=== PATIENT | female | born 1955 | race Caucasian/White ===

== ENCOUNTER 2021-08-28 11:59 | Outpatient (CLI) | payer MEDICARE, OTHER | END 2021-08-28 12:00 | disposition home or self-care (01) | LOC: BICMAMMO 11:59 | PROVIDERS: ATTEND Family Medicine | DX: Z12.31 Encounter for screening mammogram for malignant neoplasm of breast (principal) | CPT/HCPCS: 77063; 77067 ==

== ENCOUNTER 2021-10-29 08:51 | Outpatient (CLI) | payer MEDICARE, OTHER ==
[2021-10-29] MEDS ORDERED: Iopamidol-370 76% 500 ML 1 ML ONE (09:39)
== END 2021-10-29 08:52 | disposition home or self-care (01) ==
LOC: CT 08:51
PROVIDERS: ATTEND Internal Medicine Cardiovascular Disease
DX: I65.23 Occlusion and stenosis of bilateral carotid arteries (principal)
CPT/HCPCS: 70498; 82565

== ENCOUNTER 2023-04-04 17:26 | Inpatient (IN) | payer MEDICARE, OTHER ==
[2023-04-04 18:13] LABS: #Basophils 0.1 thou/uL (0.0-0.2); #Eosinphils 0.2 thou/uL (0.0-0.7); #Monocytes 0.9 thou/uL (0.11-0.59); #Neutrophils 4.7 thou/uL (1.40-6.50); %Basophils 0.8 % (0.0-1.0); %Monocytes 11.3 % (0.0-10.0); %Neutrophils 59.6 % (42.0-75.0); Hematocrit 37.4 % (36.0-47.0); Hemoglobin 12.7 g/dL (12.0-16.0); Mean Corpuscular Hemoglobin 32.2 pg (27.0-31.0); Mean Corpuscular Volume 94.7 fl (78.0-98.0); Mean Platelet Volume 9.4 fL (7.4-10.4); Platelet Count 316 10x3/uL (130-400); RBC Distribution Width 12.4 % (11.5-14.5); Red Blood Cell (RBC) Count 3.95 mill/uL (4.20-5.40); White Blood Cell (WBC) Count 7.9 10x3/uL (4.8-10.8)
[2023-04-04] MEDS ORDERED: Aspirin Chewable 81 MG TAB ONE (18:13)
[2023-04-04 18:39] LABS: ALT (SGPT) 20 U/L (8-55); AST (SGOT) 24 U/L (5-34); Albumin 4.7 g/dL (3.4-4.8); Alkaline Phosphatase 76 U/L (40-110); Anion Gap 22 mmol/L (10-20); BUN (Urea Nitrogen) 13 mg/dL (9.8-20.1); Bilirubin, Total 0.2 mg/dL (0.2-1.2); Calc. Creatinine Clearance 0 mL/min (70-130); Calcium 9.7 mg/dL (7.8-10.44); Carbon Dioxide 22 mmol/L (23-31); Chloride 95 mmol/L (98-107); Estimated GFR 77; Globulin 2.7 g/dL (2.4-3.5); Glucose 98 mg/dL (80-115); Lipase 28 U/L (8-78); Potassium 3.8 mmol/L (3.5-5.1); Protein, Total 7.4 g/dL (5.8-8.1); Sodium 135 mmol/L (136-145)
[2023-04-04] MEDS ORDERED: Nitroglycerin 0.4 MG TAB (25 Tab Bottle) SL PRN (21:32)
[2023-04-04] MEDS ORDERED: Ondansetron PF 4 MG/2 ML Vial IVP PRN (21:32)
[2023-04-04] MEDS ORDERED: Ondansetron ODT 4 MG TAB PO PRN (21:32)
[2023-04-04] MEDS ORDERED: Calcium Carbonate 500 MG ChewTAB PO PRN (21:32)
[2023-04-04] MEDS ORDERED: Acetaminophen 325 MG TAB PO PRN (21:32)
[2023-04-04 22:53] LABS: Troponin I 0.143 ng/mL (< 0.028)
[2023-04-05 00:16] VITALS: BMI 20.9
[2023-04-05 05:02] LABS: #Basophils 0.1 thou/uL (0.0-0.2); #Eosinphils 0.1 thou/uL (0.0-0.7); #Monocytes 0.8 thou/uL (0.11-0.59); #Neutrophils 3.7 thou/uL (1.40-6.50); %Eosinophils 1.6 % (0.0-10.0); %Lymphocytes 26.8 % (21.0-51.0); %Monocytes 12.4 % (0.0-10.0); %Neutrophils 57.9 % (42.0-75.0); Hematocrit 35.5 % (36.0-47.0); Hemoglobin 11.8 g/dL (12.0-16.0); Mean Corpuscular HGB CONC 33.2 g/dL (32.0-36.0); Mean Corpuscular Hemoglobin 32.2 pg (27.0-31.0); Mean Corpuscular Volume 96.7 fl (78.0-98.0); Mean Platelet Volume 9.9 fL (7.4-10.4); Platelet Count 313 10x3/uL (130-400); RBC Distribution Width 12.5 % (11.5-14.5); Red Blood Cell (RBC) Count 3.67 mill/uL (4.20-5.40); White Blood Cell (WBC) Count 6.3 10x3/uL (4.8-10.8)
[2023-04-05 05:25] LABS: Anion Gap 13 mmol/L (10-20); BUN (Urea Nitrogen) 10 mg/dL (9.8-20.1); Calc. Creatinine Clearance 74 mL/min (70-130); Calcium 9.4 mg/dL (7.8-10.44); Carbon Dioxide 26 mmol/L (23-31); Cardiac Risk 4.6 (Less than 4.5); Chloride 103 mmol/L (98-107); Cholesterol 288 mg/dl (< 200 Desired); Estimated GFR 92; Glucose 98 mg/dL (80-115); HDL Cholesterol 62 mg/dL (>60 Neg Risk); LDL Cholesterol, Calculated 200 mg/dL; Potassium 3.8 mmol/L (3.5-5.1); Sodium 138 mmol/L (136-145); Triglycerides 132 mg/dL (Less than 150)
[2023-04-05 06:36] LABS: Troponin I 0.609 ng/mL (< 0.028)
[2023-04-05 07:51] LABS: Troponin I 0.824 ng/mL (< 0.028)
[2023-04-05] MEDS ORDERED: Electrolyte Replacement Protocol 1 EACH FS SCH (11:15)
[2023-04-05] MEDS ORDERED: Communication Order-Pharmacy FS PRN (11:15)
[2023-04-05] MEDS: NIFEdipine XL 30 MG TAB PO SCH (11:20)
[2023-04-05] MEDS: Aspirin Chewable 81 MG TAB PO SCH (11:21)
[2023-04-05] MEDS ORDERED: Ezetimibe 10 MG TAB PO SCH (11:45)
[2023-04-05] MEDS ORDERED: Electrolyte Replacement Protocol FS PRN (11:45)
[2023-04-05] MEDS: Rosuvastatin 20 MG TAB PO SCH (17:17)
[2023-04-06 04:36] LABS: #Basophils 0.1 thou/uL (0.0-0.2); #Eosinphils 0.2 thou/uL (0.0-0.7); #Monocytes 0.8 thou/uL (0.11-0.59); #Neutrophils 3.2 thou/uL (1.40-6.50); %Basophils 1.2 % (0.0-1.0); %Eosinophils 2.6 % (0.0-10.0); %Lymphocytes 28.9 % (21.0-51.0); %Monocytes 13.6 % (0.0-10.0); %Neutrophils 53.4 % (42.0-75.0); Hematocrit 36.6 % (36.0-47.0); Hemoglobin 12.2 g/dL (12.0-16.0); Mean Corpuscular HGB CONC 33.3 g/dL (32.0-36.0); Mean Corpuscular Hemoglobin 32.5 pg (27.0-31.0); Mean Corpuscular Volume 97.6 fl (78.0-98.0); Mean Platelet Volume 9.8 fL (7.4-10.4); Platelet Count 295 10x3/uL (130-400); RBC Distribution Width 12.6 % (11.5-14.5); Red Blood Cell (RBC) Count 3.75 mill/uL (4.20-5.40); White Blood Cell (WBC) Count 6.1 10x3/uL (4.8-10.8)
[2023-04-06 04:54] LABS: Anion Gap 8 mmol/L (10-20); BUN (Urea Nitrogen) 10 mg/dL (9.8-20.1); Calc. Creatinine Clearance 65 mL/min (70-130); Calcium 9.2 mg/dL (7.8-10.44); Carbon Dioxide 26 mmol/L (23-31); Chloride 106 mmol/L (98-107); Estimated GFR 79; Glucose 99 mg/dL (80-115); Potassium 4.1 mmol/L (3.5-5.1); Sodium 136 mmol/L (136-145)
[2023-04-06] MEDS ORDERED: Sodium Chloride 0.9% 1,000 ML IV SCH (06:00)
[2023-04-06] MEDS ORDERED: Heparin 10,000 UNITS/ 10 ML VIAL ONE (06:29)
[2023-04-06] MEDS ORDERED: Lidocaine 1% (PF) 30 ML VIAL ONE (06:29)
[2023-04-06] MEDS ORDERED: Midazolam HCl 2 mg/2 ml Vial ONE (06:30)
[2023-04-06] MEDS ORDERED: fentaNYL 50 mcg/mL 1 mL Vial ONE (06:30)
[2023-04-06] MEDS ORDERED: Nitroglycerin 2% Ointment 1 INCH/1 GM Packet ONE (07:57)
[2023-04-06] MEDS ORDERED: Sodium Chloride 0.9% 200 ML IV PRN (08:13)
[2023-04-06] MEDS ORDERED: Nitroglycerin 0.4 MG TAB (25 Tab Bottle) SL PRN (08:13)
[2023-04-06] MEDS ORDERED: Iopamidol 370 76% 100 ML VIAL ONE (08:40)
[2023-04-06] MEDS ORDERED: Ezetimibe 10 MG TAB PO SCH (09:00)
[2023-04-06] MEDS: NIFEdipine XL 30 MG TAB PO SCH (10:25)
[2023-04-06] MEDS: Aspirin Chewable 81 MG TAB PO SCH (10:27)
[2023-04-06] MEDS ORDERED: Communication Order-Pharmacy FS SCH (15:06)
[2023-04-06] MEDS: Rosuvastatin 20 MG TAB PO SCH (17:52)
[2023-04-06] MEDS: Metoprolol Tartrate 25 MG TAB PO SCH (21:27)
[2023-04-07 04:52] LABS: %Eosinophils 1.7 % (0.0-10.0); %Lymphocytes 22.9 % (21.0-51.0); %Monocytes 12.5 % (0.0-10.0); %Neutrophils 61.6 % (42.0-75.0); Hematocrit 36.3 % (36.0-47.0); Hemoglobin 11.9 g/dL (12.0-16.0); Mean Corpuscular HGB CONC 32.8 g/dL (32.0-36.0); Mean Corpuscular Hemoglobin 32.4 pg (27.0-31.0); Mean Corpuscular Volume 98.9 fl (78.0-98.0); Mean Platelet Volume 9.7 fL (7.4-10.4); Platelet Count 283 10x3/uL (130-400); RBC Distribution Width 12.5 % (11.5-14.5); Red Blood Cell (RBC) Count 3.67 mill/uL (4.20-5.40); White Blood Cell (WBC) Count 7.2 10x3/uL (4.8-10.8)
[2023-04-07 04:53] LABS: #Basophils 0.1 thou/uL (0.0-0.2); #Eosinphils 0.1 thou/uL (0.0-0.7); #Monocytes 0.9 thou/uL (0.11-0.59); #Neutrophils 4.4 thou/uL (1.40-6.50)
[2023-04-07 05:31] LABS: Anion Gap 14 mmol/L (10-20); BUN (Urea Nitrogen) 7 mg/dL (9.8-20.1); Calc. Creatinine Clearance 75 mL/min (70-130); Calcium 9.1 mg/dL (7.8-10.44); Carbon Dioxide 24 mmol/L (23-31); Chloride 106 mmol/L (98-107); Estimated GFR 94; Glucose 104 mg/dL (80-115); Potassium 3.7 mmol/L (3.5-5.1); Sodium 140 mmol/L (136-145)
[2023-04-07] MEDS: Metoprolol Tartrate 25 MG TAB PO SCH (05:40)
[2023-04-07] MEDS ORDERED: Albumin 5% 500 ML ONE (06:20)
[2023-04-07] MEDS ORDERED: Heparin 10,000 UNITS/1 ML VIAL 30,000 UNITS in Sodium Chloride 0.9% 1,000 ML FS SCH (06:30)
[2023-04-07] MEDS ORDERED: Midazolam HCl 2 mg/2 ml Vial ONE (06:44)
[2023-04-07] MEDS ORDERED: Fentanyl 250 MCG/5 ML VIAL ONE (06:44)
[2023-04-07] MEDS ORDERED: Dexmedetomidine 200 MCG/2 ML VIAL ONE (06:44)
[2023-04-07] MEDS ORDERED: Ondansetron ODT 4 MG TAB ONE (07:03)
[2023-04-07] MEDS ORDERED: Sodium Chloride 0.9% 100 ML ONE (07:22)
[2023-04-07] MEDS ORDERED: CEFAZOLIN 2 GM VIAL ONE (07:22)
[2023-04-07] MEDS ORDERED: Magnesium 5 GM/10 ML VIAL ONE (07:34)
[2023-04-07] MEDS ORDERED: Aminocaproic Acid 5 GM/20 ML VIAL ONE (07:34)
[2023-04-07] MEDS ORDERED: Thrombin 5000 UNITS/5 ML VIAL ONE (07:34)
[2023-04-07] MEDS ORDERED: Cardioplegic Soln 1,000 ML BAG ONE (07:34)
[2023-04-07] MEDS ORDERED: Sodium Bicarb 50 MEQ/50 ML VIAL ONE (07:34)
[2023-04-07] MEDS ORDERED: Lidocaine 2% PF 100 mg/5 ml Syringe ONE (07:34)
[2023-04-07] MEDS ORDERED: Protamine Sulfate 250 MG/25 ML VIAL ONE (07:34)
[2023-04-07] MEDS ORDERED: Calcium Chloride 1 GM/10 ML Abboject SYRINGE ONE (07:34)
[2023-04-07] MEDS ORDERED: Norepinephrine 4 MG/4 ML VIAL ONE (07:34)
[2023-04-07] MEDS ORDERED: Dexamethasone 20 MG/5 ML VIAL ONE (07:34)
[2023-04-07] MEDS ORDERED: Papaverine 60 MG/2 ML VIAL ONE (07:34)
[2023-04-07] MEDS ORDERED: Mannitol 12.5 GM/50 ML ONE (07:34)
[2023-04-07] MEDS ORDERED: NEOSTIGMINE 3 MG/3 ML SYR 3 MG/3 ML SYRINGE ONE (07:34)
[2023-04-07] MEDS ORDERED: Lidocaine 1% PF 5 ML VIAL ONE (07:34)
[2023-04-07] MEDS ORDERED: Heparin 30,000 units/30 ml VIAL ONE (07:34)
[2023-04-07] MEDS ORDERED: Vancomycin 1 GM VIAL ONE (07:34)
[2023-04-07] MEDS ORDERED: Glycopyrrolate 0.2 MG/ML 5 ML SYRINGE ONE (07:34)
[2023-04-07] MEDS ORDERED: Potassium Chloride 60 MEQ/30 ML VIAL ONE (07:34)
[2023-04-07] MEDS ORDERED: Vecuronium 10 MG VIAL ONE (07:34)
[2023-04-07] MEDS ORDERED: Heparin 5,000 UNITS/ML VIAL ONE (07:34)
[2023-04-07] MEDS ORDERED: Ondansetron PF 4 MG/2 ML Vial ONE (07:34)
[2023-04-07] MEDS ORDERED: PROPOFOL 200 MG/20 ML VIAL ONE (07:34)
[2023-04-07] MEDS ORDERED: Mag-Al 1200 mg/1200 mg/30 ML UDCUP PO PRN (10:10)
[2023-04-07] MEDS ORDERED: Potassium Chloride 20 MEQ/100 ML PREMIX BAG IVPB PRN (10:10)
[2023-04-07] MEDS ORDERED: NOREPINEPHRINE 8 MG/250 ML-D5W 250 ML IVPB PRN (10:10)
[2023-04-07] MEDS ORDERED: Ipratropium/Albuterol 3 ML NEB NEB PRN (10:10)
[2023-04-07] MEDS ORDERED: Hetastarch 6% 500 ML 500 ML IVPB PRN (10:10)
[2023-04-07] MEDS ORDERED: DOPamine 400 MG/D5W 250 ML 250 ML IVPB PRN (10:10)
[2023-04-07] MEDS ORDERED: Ondansetron PF 4 MG/2 ML Vial IVP PRN (10:10)
[2023-04-07] MEDS ORDERED: Morphine 2 MG/ML VIAL SLOW IVP PRN (10:10)
[2023-04-07] MEDS ORDERED: niCARdipine 25 MG in Sodium Chloride 0.9% 250 ML 250 ML IVPB PRN (10:10)
[2023-04-07] MEDS ORDERED: Guaifenesin DM 100-10/5 ML UDCUP PO PRN (10:10)
[2023-04-07] MEDS ORDERED: Bisacodyl 5 MG TAB PO PRN (10:10)
[2023-04-07] MEDS ORDERED: Bisacodyl 10 MG SUPP PR PRN (10:10)
[2023-04-07] MEDS ORDERED: Post-Op Insulin Drip Protocol IVPB ONE (10:10)
[2023-04-07] MEDS ORDERED: Nitroglycerin 50 MG/250 ML BOT 250 ML IVPB PRN (10:10)
[2023-04-07] MEDS ORDERED: Acetaminophen 325 MG TAB PO PRN (10:10)
[2023-04-07] MEDS ORDERED: Glucagon 1 MG/ML KIT SC PRN (10:30)
[2023-04-07] MEDS ORDERED: HUMULIN R 100 UNITS in Sodium Chloride 0.9% 100 ML IVPB SCH (10:30)
[2023-04-07] MEDS ORDERED: Dextrose 50% Abboject 50 ML SYRINGE SLOW IVP PRN (10:30)
[2023-04-07] MEDS ORDERED: Dextrose 5% in Water 1,000 ML IV PRN (10:30)
[2023-04-07] MEDS: Insulin Regular 300 UNITS/3 ML VIAL SC PRN ×2 (10:36→20:27)
[2023-04-07 10:38] LABS: #Basophils 0.1 thou/uL (0.0-0.2); #Eosinphils 0.1 thou/uL (0.0-0.7); #Monocytes 0.6 thou/uL (0.11-0.59); %Basophils 0.4 % (0.0-1.0); %Eosinophils 0.7 % (0.0-10.0); %Lymphocytes 8.4 % (21.0-51.0); %Monocytes 4.1 % (0.0-10.0); %Neutrophils 85.5 % (42.0-75.0); Hematocrit 33.5 % (36.0-47.0); Hemoglobin 10.8 g/dL (12.0-16.0); Mean Corpuscular HGB CONC 32.2 g/dL (32.0-36.0); Mean Corpuscular Hemoglobin 32.2 pg (27.0-31.0); Mean Platelet Volume 9.9 fL (7.4-10.4); RBC Distribution Width 12.6 % (11.5-14.5); Red Blood Cell (RBC) Count 3.35 mill/uL (4.20-5.40); White Blood Cell (WBC) Count 15.2 10x3/uL (4.8-10.8)
[2023-04-07] MEDS: fentaNYL 50 mcg/mL 1 mL Vial SLOW IVP PRN ×5 (10:39→21:46)
[2023-04-07] MEDS: Lactated Ringer's 1,000 ML IV SCH (10:39)
[2023-04-07 10:40] LABS: Platelet Count 183 10x3/uL (130-400)
[2023-04-07] MEDS: Ketorolac Tromethamine 30 MG/ML VIAL IVP SCH ×3 (10:55→23:56)
[2023-04-07 10:56] LABS: INR-International Normal Ratio 1.3; Prothrombin Time 16.3 sec (12.0-14.7)
[2023-04-07 11:03] LABS: Anion Gap 13 mmol/L (10-20); BUN (Urea Nitrogen) 6 mg/dL (9.8-20.1); Calc. Creatinine Clearance 77 mL/min (70-130); Calcium 7.9 mg/dL (7.8-10.44); Carbon Dioxide 19 mmol/L (23-31); Chloride 111 mmol/L (98-107); Estimated GFR 96; Glucose 155 mg/dL (80-115); Potassium 4.1 mmol/L (3.5-5.1); Sodium 139 mmol/L (136-145)
[2023-04-07] MEDS: traMADol HCl 50 MG TAB PO PRN ×2 (11:42→15:58)
[2023-04-07] MEDS: CEFAZOLIN 2 GM in Sodium Chloride 0.9% 100 ML IVPB SCH (13:43)
[2023-04-07 17:04] LABS: Hematocrit 30.8 % (36.0-47.0); Hemoglobin 10.1 g/dL (12.0-16.0)
[2023-04-07 17:17] LABS: Potassium 3.7 mmol/L (3.5-5.1)
[2023-04-07] MEDS: Famotidine/PF 20 mg/2ml Vial SLOW IVP SCH (21:42)
[2023-04-08] MEDS: CEFAZOLIN 2 GM in Sodium Chloride 0.9% 100 ML IVPB SCH ×2 (00:05→06:35)
[2023-04-08] MEDS: Lactated Ringer's 1,000 ML IV SCH (00:58)
[2023-04-08 03:58] LABS: #Monocytes 1.4 thou/uL (0.11-0.59); #Neutrophils 9.5 thou/uL (1.40-6.50); %Basophils 0.1 % (0.0-1.0); %Lymphocytes 9.9 % (21.0-51.0); %Monocytes 11.5 % (0.0-10.0); %Neutrophils 78.1 % (42.0-75.0); Hematocrit 26.6 % (36.0-47.0); Mean Corpuscular HGB CONC 33.8 g/dL (32.0-36.0); Mean Corpuscular Hemoglobin 32.7 pg (27.0-31.0); Mean Platelet Volume 10.1 fL (7.4-10.4); Platelet Count 165 10x3/uL (130-400); RBC Distribution Width 12.6 % (11.5-14.5); Red Blood Cell (RBC) Count 2.75 mill/uL (4.20-5.40); White Blood Cell (WBC) Count 12.2 10x3/uL (4.8-10.8)
[2023-04-08 04:23] LABS: Anion Gap 12 mmol/L (10-20); BUN (Urea Nitrogen) 8 mg/dL (9.8-20.1); Calc. Creatinine Clearance 80 mL/min (70-130); Carbon Dioxide 20 mmol/L (23-31); Chloride 107 mmol/L (98-107); Estimated GFR 97; Glucose 109 mg/dL (80-115); Potassium 3.6 mmol/L (3.5-5.1); Sodium 135 mmol/L (136-145)
[2023-04-08] MEDS: fentaNYL 50 mcg/mL 1 mL Vial SLOW IVP PRN (04:24)
[2023-04-08 04:34] LABS: Mean Corpuscular Volume 96.7 fl (78.0-98.0)
[2023-04-08] MEDS: Ketorolac Tromethamine 30 MG/ML VIAL IVP SCH ×4 (05:57→23:16)
[2023-04-08] MEDS: traMADol HCl 50 MG TAB PO PRN ×2 (08:29→12:23)
[2023-04-08] MEDS: Famotidine/PF 20 mg/2ml Vial SLOW IVP SCH (08:30)
[2023-04-08] MEDS: Polyethylene Glycol 3350 17 GM Packet PO SCH (08:30)
[2023-04-08] MEDS: Aspirin Chewable 81 MG TAB PO SCH (08:30)
[2023-04-08] MEDS: Magnesium 2 GM/50 ML(in water) 2 GM in Premix Bag 1 BAG IVPB SCH (08:31)
[2023-04-08] MEDS ORDERED: Insulin Glargine 30 UNITS/0.3 ML VIAL SC PRN (10:17)
[2023-04-08] MEDS ORDERED: Nitroglycerin 0.4 MG TAB (25 Tab Bottle) SL PRN (15:30)
[2023-04-08] MEDS ORDERED: Metoprolol Tartrate 25 MG TAB PO SCH (16:00)
[2023-04-08] MEDS: Carvedilol 3.125 MG TAB PO SCH (17:46)
[2023-04-08] MEDS: Metoprolol Tartrate 25 MG TAB PO SCH (20:38)
[2023-04-08] MEDS: Famotidine 20 MG TAB PO SCH (20:39)
[2023-04-08] MEDS: Rosuvastatin 20 MG TAB PO SCH (20:39)
[2023-04-08] MEDS ORDERED: Simvastatin 40 MG TAB PO SCH (21:00)
[2023-04-09] MEDS: traMADol HCl 50 MG TAB PO PRN (03:54)
[2023-04-09 04:32] LABS: #Monocytes 1.2 thou/uL (0.11-0.59); #Neutrophils 7.1 thou/uL (1.40-6.50); %Basophils 0.3 % (0.0-1.0); %Eosinophils 0.1 % (0.0-10.0); %Lymphocytes 16.4 % (21.0-51.0); %Neutrophils 70.9 % (42.0-75.0); Hematocrit 24.5 % (36.0-47.0); Hemoglobin 8.1 g/dL (12.0-16.0); Mean Corpuscular HGB CONC 33.1 g/dL (32.0-36.0); Mean Corpuscular Hemoglobin 32.3 pg (27.0-31.0); Mean Corpuscular Volume 97.6 fl (78.0-98.0); Platelet Count 161 10x3/uL (130-400); RBC Distribution Width 12.6 % (11.5-14.5); Red Blood Cell (RBC) Count 2.51 mill/uL (4.20-5.40); White Blood Cell (WBC) Count 10.1 10x3/uL (4.8-10.8)
[2023-04-09] MEDS: Ketorolac Tromethamine 30 MG/ML VIAL IVP SCH ×3 (05:41→17:42)
[2023-04-09] MEDS: Famotidine 20 MG TAB PO SCH ×2 (09:19→20:51)
[2023-04-09] MEDS: Metoprolol Tartrate 25 MG TAB PO SCH ×2 (09:19→20:51)
[2023-04-09] MEDS: Carvedilol 3.125 MG TAB PO SCH ×2 (09:19→17:42)
[2023-04-09] MEDS: Lisinopril 2.5 MG TAB PO SCH (09:19)
[2023-04-09] MEDS: Aspirin Chewable 81 MG TAB PO SCH (09:19)
[2023-04-09] MEDS: Polyethylene Glycol 3350 17 GM Packet PO SCH (09:21)
[2023-04-09] MEDS: Magnesium 2 GM/50 ML(in water) 2 GM in Premix Bag 1 BAG IVPB SCH (09:21)
[2023-04-09] MEDS: Rosuvastatin 20 MG TAB PO SCH (20:51)
[2023-04-10] MEDS: Ketorolac Tromethamine 30 MG/ML VIAL IVP SCH ×3 (00:01→12:46)
[2023-04-10] MEDS: traMADol HCl 50 MG TAB PO PRN (00:07)
[2023-04-10] MEDS: Aspirin Chewable 81 MG TAB PO SCH (09:32)
[2023-04-10] MEDS: Lisinopril 2.5 MG TAB PO SCH (09:32)
[2023-04-10] MEDS: Carvedilol 3.125 MG TAB PO SCH (09:32)
[2023-04-10] MEDS: Famotidine 20 MG TAB PO SCH (09:32)
[2023-04-10] MEDS: Polyethylene Glycol 3350 17 GM Packet PO SCH (09:33)
[2023-04-10 12:51] VITALS: BP 122/62; TEMP 97.6
== END 2023-04-10 13:12 | disposition home or self-care (01) | DRG 234 ==
LOC: ERS 17:26 → 2SE 21:32 → OBSVTOIN 04-05 11:13 → CCU 04-07 06:45 → 2NO 04-08 16:55
PROVIDERS: ADMIT Physician Assistant; ATTEND Family Medicine
PROC: 4A023N7 Measurement of Cardiac Sampling and Pressure, Left Heart, Percutaneous Approach (ICD-10-PCS; principal; 2023-04-06)
PROC: B2111ZZ Fluoroscopy of Multiple Coronary Arteries using Low Osmolar Contrast (ICD-10-PCS; 2023-04-06)
PROC: B2151ZZ Fluoroscopy of Left Heart using Low Osmolar Contrast (ICD-10-PCS; 2023-04-06)
PROC: 021109W Bypass Coronary Artery, Two Arteries from Aorta with Autologous Venous Tissue, Open Approach (ICD-10-PCS; 2023-04-07)
PROC: 06BQ3ZZ Excision of Left Saphenous Vein, Percutaneous Approach (ICD-10-PCS; 2023-04-07)
PROC: 02L70CK Occlusion of Left Atrial Appendage with Extraluminal Device, Open Approach (ICD-10-PCS; 2023-04-07)
PROC: 5A1221Z Performance of Cardiac Output, Continuous (ICD-10-PCS; 2023-04-07)
PROC: 4A133R1 Monitoring of Arterial Saturation, Peripheral, Percutaneous Approach (ICD-10-PCS; 2023-04-07)
DX: I21.4 Non-ST elevation (NSTEMI) myocardial infarction (principal); I45.2 Bifascicular block; F17.210 Nicotine dependence, cigarettes, uncomplicated; E78.5 Hyperlipidemia, unspecified; I12.9 Hypertensive chronic kidney disease with stage 1 through stage 4 chronic kidney disease, or unspecified chronic kidney disease; N18.2 Chronic kidney disease, stage 2 (mild); I73.9 Peripheral vascular disease, unspecified; I25.10 Atherosclerotic heart disease of native coronary artery without angina pectoris; I77.9 Disorder of arteries and arterioles, unspecified; Z79.899 Other long term (current) drug therapy; Z98.890 Other specified postprocedural states
CPT/HCPCS: 36415; 36416; 36430; 71045; 80048; 80053; 80061; 82805; 83690; 83735; 84484; 85025; 85610; 85730; 86850; 86900; 86901; 93005; 93010; 93306; 93458; 93798; 94760; 96372; 97139; 99152; 99153; C1751; C1894; G0378; J1100; J1642; J1644; J1650; J1815; J1885; J2001; J2150; J2250; J2405; J2440; J2704; J2720; J3010; J3370; J3475; J3480; J3490; J7050; J7120; P9045; Q0162; Q9967; S0017; S0028

== ENCOUNTER 2023-05-26 13:03 | Emergency (ER) | payer MEDICARE, OTHER ==
[~2023-05-26 13:03] MED LIST: Iopamidol-370 76% 500 ML MDV (1 ML CHARGE) ONE
[2023-05-26 13:36] LABS: #Basophils 0.1 thou/uL (0.0-0.2); #Eosinphils 0.2 thou/uL (0.0-0.7); #Monocytes 1.1 thou/uL (0.11-0.59); #Neutrophils 6.9 thou/uL (1.40-6.50); %Basophils 0.7 % (0.0-1.0); %Eosinophils 1.7 % (0.0-10.0); %Lymphocytes 14.2 % (21.0-51.0); %Monocytes 11.3 % (0.0-10.0); %Neutrophils 71.9 % (42.0-75.0); Hematocrit 31.9 % (36.0-47.0); Hemoglobin 10.6 g/dL (12.0-16.0); Mean Corpuscular HGB CONC 33.2 g/dL (32.0-36.0); Mean Corpuscular Hemoglobin 29.7 pg (27.0-31.0); Mean Corpuscular Volume 89.4 fl (78.0-98.0); Platelet Count 356 10x3/uL (130-400); RBC Distribution Width 13.3 % (11.5-14.5); Red Blood Cell (RBC) Count 3.57 mill/uL (4.20-5.40); White Blood Cell (WBC) Count 9.6 10x3/uL (4.8-10.8)
[2023-05-26 14:11] LABS: Troponin I Less than 0.010 ng/mL (< 0.028)
[2023-05-26 14:14] LABS: ALT (SGPT) 11 U/L (8-55); AST (SGOT) 14 U/L (5-34); Albumin 4.3 g/dL (3.4-4.8); Alkaline Phosphatase 114 U/L (40-110); Anion Gap 13 mmol/L (10-20); BUN (Urea Nitrogen) 9 mg/dL (9.8-20.1); Bilirubin, Total 0.5 mg/dL (0.2-1.2); Calc. Creatinine Clearance 0 mL/min (70-130); Calcium 9.7 mg/dL (7.8-10.44); Carbon Dioxide 25 mmol/L (23-31); Chloride 95 mmol/L (98-107); Estimated GFR 78; Globulin 3.1 g/dL (2.4-3.5); Glucose 117 mg/dL (80-115); Lipase 10 U/L (8-78); Potassium 4.4 mmol/L (3.5-5.1); Protein, Total 7.4 g/dL (5.8-8.1); Sodium 129 mmol/L (136-145)
[2023-05-26 17:54] LABS: Troponin I Less than 0.010 ng/mL (< 0.028)
== END 2023-05-26 18:14 | disposition home or self-care (01) ==
LOC: ERS 13:03
DX: R07.89 Other chest pain (principal); R91.1 Solitary pulmonary nodule; I10 Essential (primary) hypertension; F17.210 Nicotine dependence, cigarettes, uncomplicated
CPT/HCPCS: 36415; 71045; 71275; 80053; 83690; 84484; 85025; 85379; 93005; Q9967

== ENCOUNTER 2023-08-05 07:51 | Outpatient (CLI) | payer MEDICARE, OTHER | END 2023-08-05 07:52 | disposition home or self-care (01) | LOC: BICCT 07:51 | PROVIDERS: ATTEND Thoracic Surgery (Cardiothoracic Vascular Surgery) | DX: I25.118 Atherosclerotic heart disease of native coronary artery with other forms of angina pectoris (principal); I77.1 Stricture of artery; I70.209 Unspecified atherosclerosis of native arteries of extremities, unspecified extremity; R91.1 Solitary pulmonary nodule | CPT/HCPCS: 70498; 82565 ==

== ENCOUNTER 2023-08-10 13:09 | Outpatient (CLI) | payer MEDICARE, OTHER ==
[2023-08-10 15:07] LABS: Hematocrit 35.7 % (34.9-44.5); Hemoglobin 11.8 g/dL (12.0-15.5); Mean Corpuscular HGB CONC 33.1 g/dL (32.0-36.0); Mean Corpuscular Hemoglobin 29.4 pg (27.0-33.0); Mean Platelet Volume 10.4 fl (7.4-10.4); Platelet Count 319 10x3/uL (150-450); RBC Distribution Width 16.5 % (11.5-14.5); Red Blood Cell (RBC) Count 4.01 10x6/uL (3.90-5.03); White Blood Cell (WBC) Count 9.2 10x3/uL (3.5-10.5)
[2023-08-10 15:20] LABS: Anion Gap 14 mmol/L (10-20); BUN (Urea Nitrogen) 12 mg/dL (9.8-20.1); Calc. Creatinine Clearance 0 mL/min (70-130); Calcium 10.1 mg/dL (7.8-10.44); Carbon Dioxide 27 mmol/L (23-31); Chloride 101 mmol/L (98-107); Estimated GFR 77; Glucose 104 mg/dL (80-115); Potassium 4.5 mmol/L (3.5-5.1); Sodium 137 mmol/L (136-145)
== END 2023-08-10 13:10 | disposition home or self-care (01) ==
LOC: LABBT 13:09
PROVIDERS: ATTEND Thoracic Surgery (Cardiothoracic Vascular Surgery)
DX: Z01.812 Encounter for preprocedural laboratory examination (principal); I65.21 Occlusion and stenosis of right carotid artery
CPT/HCPCS: 80048; 85027

== ENCOUNTER 2023-08-11 07:01 | Inpatient (IN) | payer MEDICARE, OTHER ==
[2023-08-11] MEDS ORDERED: CEFAZOLIN 2 GM VIAL ONE (07:56)
[2023-08-11] MEDS ORDERED: Sodium Chloride 0.9% 100 ML ONE (07:56)
[2023-08-11] MEDS ORDERED: Lidocaine 2% PF 5 ML VIAL ONE ×2 (07:56→09:16)
[2023-08-11] MEDS ORDERED: PROPOFOL 20 ML ONE (09:16)
[2023-08-11] MEDS ORDERED: Rocuronium Bromide 10 MG/ML (10ML VIAL) ONE ×2 (09:16→09:23)
[2023-08-11] MEDS ORDERED: fentaNYL PF 100 MCG/2 ML SYRINGE ONE (09:16)
[2023-08-11] MEDS ORDERED: NEOSTIGMINE 3 MG/3 ML SYR 3 MG/3 ML SYRINGE ONE ×2 (09:23→10:06)
[2023-08-11] MEDS ORDERED: Ondansetron PF 4 MG/2 ML Vial ONE ×3 (09:23→10:24)
[2023-08-11] MEDS ORDERED: Lidocaine 1% PF 5 ML VIAL ONE (09:23)
[2023-08-11] MEDS ORDERED: PROPOFOL 200 MG/20 ML VIAL ONE (09:23)
[2023-08-11] MEDS ORDERED: Dexamethasone 20 MG/5 ML VIAL ONE (09:23)
[2023-08-11] MEDS ORDERED: Glycopyrrolate 0.2 MG/ML 5 ML SYRINGE ONE ×2 (09:23→10:05)
[2023-08-11] MEDS ORDERED: Bupivacaine PF 0.5% 30 ML VIAL ONE (09:27)
[2023-08-11] MEDS ORDERED: Protamine Sulfate 50 MG/5 ML VIAL ONE (09:27)
[2023-08-11] MEDS ORDERED: Heparin 5,000 UNITS/ML VIAL ONE (09:27)
[2023-08-11] MEDS ORDERED: EPINEPHrine 1 MG/ML VIAL ONE (09:27)
[2023-08-11] MEDS ORDERED: Dexamethasone 4 mg/ml Vial ONE (09:42)
[2023-08-11] MEDS ORDERED: Heparin 10,000 UNITS/ 10 ML VIAL ONE (09:48)
[2023-08-11] MEDS ORDERED: PHENYLEPHRINE-NS 100 MCG/ML 10 ML SYRINGE ONE (10:06)
[2023-08-11] MEDS ORDERED: traMADol HCl 50 MG TAB PO PRN (11:03)
[2023-08-11] MEDS ORDERED: ADMIXTURE FEE IVPB PRN (11:03)
[2023-08-11] MEDS ORDERED: fentaNYL 50 mcg/mL 1 mL Vial SLOW IVP PRN (11:03)
[2023-08-11] MEDS ORDERED: niCARdipine 25 MG in Sodium Chloride 0.9% 250 ML 250 ML IVPB PRN (11:03)
[2023-08-11] MEDS ORDERED: PHENYLEPHRINE IVPB PRN (11:03)
[2023-08-11] MEDS ORDERED: SODIUM CHLORIDE IVPB PRN (11:03)
[2023-08-11] MEDS ORDERED: Ipratropium/Albuterol 3 ML NEB NEB PRN (11:03)
[2023-08-11] MEDS ORDERED: Sodium Chloride 0.9% 1,000 ML IV SCH (11:03)
[2023-08-11] MEDS ORDERED: Ondansetron PF 4 MG/2 ML Vial IVP PRN (11:03)
[2023-08-11] MEDS ORDERED: fentaNYL 50 mcg/mL 1 mL Vial ONE (11:46)
[2023-08-11 12:49] VITALS: BMI 22.4
[2023-08-11] MEDS: Acetaminophen 325 MG TAB PO PRN ×2 (16:08→21:10)
[2023-08-11] MEDS: Carvedilol 3.125 MG TAB PO SCH (16:08)
[2023-08-11] MEDS: CEFAZOLIN 2 GM in Sodium Chloride 0.9% 100 ML IVPB SCH ×2 (16:09→23:57)
[2023-08-11] MEDS ORDERED: Rosuvastatin 20 MG TAB PO SCH (21:00)
[2023-08-11] MEDS ORDERED: Losartan 25 MG TAB PO SCH (21:00)
[2023-08-12] MEDS: Acetaminophen 325 MG TAB PO PRN ×2 (01:12→05:12)
[2023-08-12] MEDS: CEFAZOLIN 2 GM in Sodium Chloride 0.9% 100 ML IVPB SCH (07:20)
[2023-08-12] MEDS: Carvedilol 3.125 MG TAB PO SCH (07:20)
[2023-08-12 08:07] VITALS: TEMP 98.2
[2023-08-12] MEDS ORDERED: Aspirin Chewable 81 MG TAB PO SCH (09:00)
[2023-08-14] MEDS ORDERED: FLU VACC QS2023(65UP)/MF59C/PF 60 MCG/0.5 ML SYRINGE IM ONE (09:00)
== END 2023-08-12 08:30 | disposition home or self-care (01) | DRG 39 ==
LOC: SDC 07:01 → CCU 11:01
PROVIDERS: ADMIT Thoracic Surgery (Cardiothoracic Vascular Surgery); ATTEND Thoracic Surgery (Cardiothoracic Vascular Surgery)
PROC: 03CH0ZZ Extirpation of Matter from Right Common Carotid Artery, Open Approach (ICD-10-PCS; principal; 2023-08-11)
PROC: 03UH0KZ Supplement Right Common Carotid Artery with Nonautologous Tissue Substitute, Open Approach (ICD-10-PCS; 2023-08-11)
PROC: 3E033XZ Introduction of Vasopressor into Peripheral Vein, Percutaneous Approach (ICD-10-PCS; 2023-08-11)
DX: I65.21 Occlusion and stenosis of right carotid artery (principal); I10 Essential (primary) hypertension; I25.2 Old myocardial infarction; Z95.5 Presence of coronary angioplasty implant and graft; Z95.1 Presence of aortocoronary bypass graft; Z98.890 Other specified postprocedural states; Z87.891 Personal history of nicotine dependence; Z79.899 Other long term (current) drug therapy; Z79.82 Long term (current) use of aspirin; I25.118 Atherosclerotic heart disease of native coronary artery with other forms of angina pectoris; Z79.01 Long term (current) use of anticoagulants
CPT/HCPCS: 36416; 80048; 85027; C1768; J0171; J1100; J1642; J1644; J2001; J2405; J2704; J2720; J3010; J3490; J7050; S0020

== ENCOUNTER 2024-04-27 10:12 | Outpatient (CLI) | payer MEDICARE, OTHER | END 2024-04-27 10:13 | disposition home or self-care (01) | LOC: BICMAMMO 10:12 | PROVIDERS: ATTEND Family Medicine | DX: Z12.31 Encounter for screening mammogram for malignant neoplasm of breast (principal); N95.9 Unspecified menopausal and perimenopausal disorder; M85.851 Other specified disorders of bone density and structure, right thigh; M85.852 Other specified disorders of bone density and structure, left thigh | CPT/HCPCS: 77063; 77067; 77080 ==

== ENCOUNTER 2024-06-27 13:15 | Outpatient (CLI) | payer MEDICARE, OTHER | END 2024-06-27 13:16 | disposition home or self-care (01) | LOC: BICCT 13:15 | PROVIDERS: ATTEND Family Medicine | DX: Z12.2 Encounter for screening for malignant neoplasm of respiratory organs (principal); Z87.891 Personal history of nicotine dependence; R59.0 Localized enlarged lymph nodes | CPT/HCPCS: 71271 ==

== ENCOUNTER 2024-07-17 10:50 | Outpatient (CLI) | payer MEDICARE, OTHER | END 2024-07-17 10:51 | disposition home or self-care (01) | LOC: BICULT 10:50 | PROVIDERS: ATTEND Family Medicine | DX: R59.1 Generalized enlarged lymph nodes (principal) | CPT/HCPCS: 76999 ==

== ENCOUNTER 2025-06-08 12:09 | Outpatient (CLI) | payer MEDICARE, OTHER | END 2025-06-08 12:10 | disposition home or self-care (01) | LOC: BICMAMMO 12:09 | PROVIDERS: ATTEND Family Medicine | DX: Z12.31 Encounter for screening mammogram for malignant neoplasm of breast (principal) | CPT/HCPCS: 77063; 77067 ==

== ENCOUNTER 2025-07-17 10:53 | Outpatient (CLI) | payer MEDICARE, OTHER | END 2025-07-17 10:54 | disposition home or self-care (01) | LOC: BICCT 10:53 | PROVIDERS: ATTEND Family Medicine | DX: Z12.2 Encounter for screening for malignant neoplasm of respiratory organs (principal); Z87.891 Personal history of nicotine dependence | CPT/HCPCS: 71271 ==